=== PATIENT | female | born 1940 | race American Indian/Alaskan Native ===

== ENCOUNTER 2020-02-09 11:15 | Outpatient (CLI) | payer MEDICARE | END 2020-02-09 11:16 | disposition home or self-care (01) | LOC: SPVIMAG 11:15 | PROVIDERS: ATTEND Surgery | DX: N60.81 Other benign mammary dysplasias of right breast (principal); R92.2 Inconclusive mammogram; Z85.3 Personal history of malignant neoplasm of breast | CPT/HCPCS: A9575; C8908; 77049 ==

== ENCOUNTER 2020-04-24 06:24 | Day surgery (SDC) | payer MEDICARE ==
[~2020-04-24 06:24] MED LIST: VANCOMYCIN 1,000 MG in SODIUM CHLORIDE 0.9% 500 ML 500 ML IV ONE; VANCOMYCIN 1,250 MG in SODIUM CHLORIDE 0.9% 250ML 250 ML IV ONE
[2020-04-24] MEDS ORDERED: LIDOCAINE (1%) 10 MG/1 ML VIAL 20 ML MDV ONE ×2 (07:49→10:02)
[2020-04-24] MEDS ORDERED: LACTATED RINGERS 1,000 ML ONE (08:26)
[2020-04-24] MEDS ORDERED: VANCOMYCIN/NS 1 GM/250 ML 1 GM/250 ML BAG IV NR (08:34)
--- NOTE | 2020-04-24 08:52 | Anesthesia Day of Surgery ---
Anesthesia Day of Surgery - Day of Surgery Patient Examined: Yes Patient H&P Reviewed: Yes Patient is NPO: Yes Cardiac Clearance: Yes (Medical Clearance)
[2020-04-24] MEDS ORDERED: dexAMETHasone 20 MG/5 ML VIAL ONE (09:10)
[2020-04-24] MEDS ORDERED: ONDANSETRON 4 MG/2 ML INJ ONE (09:10)
[2020-04-24] MEDS ORDERED: LIDOCAINE MPF (2%) 20 MG/1 ML VIAL 5 ML ONE (09:10)
[2020-04-24] MEDS ORDERED: propofoL 200 MG/20 ML VIAL IV ONE (09:11)
[2020-04-24] MEDS ORDERED: HYDROmorphone 1 MG/1 ML INJ ONE (09:11)
[2020-04-24] MEDS ORDERED: BUPIVACAINE/PF (0.25%) 2.5 MG/ML 30 ML VIAL INFILTRATI ONE ×2 (10:02→10:50)
[2020-04-24] MEDS ORDERED: ePHEDrine SULFATE 50 MG/1 ML INJ ONE (10:34)
[2020-04-24] MEDS ORDERED: SODIUM CHLORIDE P/F VIAL 10 ML 10 ML ONE (10:35)
--- NOTE | 2020-04-24 10:39 | Mammography Report ---
MAMMOGRAPHIC GUIDED RIGHT BREAST NEEDLE LOCALIZATION, 04/24/2020 CLINICAL INFORMATION / INDICATION: POST BX CLIP. COMPARISON: Diagnostic right breast mammogram from 01/14/2020 PROCEDURE: Risks, benefits and indications to the procedure were discussed with the patient. The patient agreed to proceed with both verbal and written consent. A timeout procedure was performed with 2 patient maddy ntifiers. The breast was prepped with iodine in the usual sterile fashion. Approximately 3 cc of Lidocaine 1% w as used for local anesthesia. Under direct digital mammographic guidance, a localization wire was fadia kian in satisfactory position with distal tip traversing the targeted lesion. Post-biopsy mammogram co nfirms satisfactory positioning of the localization wire. The wire was secured to the skin with a rosales rile dressing. The patient tolerated procedure without difficulty. No complications were encountered. IMPRESSION: 1. Satisfactory mammographic guided wire localization of the right breast. Signer Name: Sedrick Peoples MD Signed: 04/24/2020 10:35 AM Workstation Name: [id number]
[2020-04-24] MEDS ORDERED: WATER FOR IRRIG STERILE 1,500 ML BOTTLE IR ONE (10:50)
[2020-04-24] MEDS ORDERED: LIDOCAINE (1%) 10 MG/1 ML VIAL 20 ML MDV INFILTRATI ONE (10:51)
--- NOTE | 2020-04-24 11:11 | Operative Report ---
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 She has a personal history of Stage 0 left breast cancer diagnosed in January 2019 and underwent a lumpectomy. She wished to proceed with the above procedure. Procedure in detail: The patient was taken to radiology for wire placement for localization known area of concern. Patient was then taken to the operating room. Gen. anesthesia was administered. Right breast and axilla were prepped and draped in the normal sterile operative fashion. The wire was identified around 9:00 position 5-7 cm FN. Timeout was performed. Ultrasound used as well to localize area of excision. Attention was then taken towards the right breast. A 9:00 periareolar breast incision was made with a 15 blade knife and dissection taken down to subcutaneous tissues. First began raising of the anterior flap with removal of the wire from the skin with dissection taken down posteriorly past the wire, followed by raising of the superior flap, inferior flap and medial flap with all flaps taken down posteriorly past the wire. The breast area of concern was appropriately removed posteriorly with the aid of the Bovie cautery. The wire was not encountered. Specimen was marked and then sent to pathology and radiology; radiograph specimen with wire and x1 clip present. Breast cavity was irrigated and hemostasis was obtained. Breast cavity was anesthesized wtih 1% lidocained mixed with quarter percent marcaine without epinephrine. The posterior deep breast tissues were approximated and closed using interrupted 3-0 Vicryl. The subcutaneous tissues were approximated and closed using interrupted 3-0 Vicryl followed by closing of the skin with a running 4-0 Monocryl and skin affix. The patient tolerated surgery very well and she was awaken from anesthesia without any complication and transported to PACU in good condition.
--- NOTE | 2020-04-24 11:14 | Short Stay Summary ---
Short Stay Documentation Date of service: 04/24/20 - History H&P: obtained from office - Allergies and Medications Current Medications: Allergies Penicillins Allergy (Verified 04/19/20 15:12) Unknown Home Medications Medication Instructions Recorded Confirmed Last Taken Type Ergocalciferol [Vitamin D2] 1 cap PO QWEEK 03/13/20 04/19/20 Unknown History traMADoL [Ultram 50 MG tab] 50 mg PO Q6HR PRN #12 tablet 04/24/20 Unknown Rx - Brief post op/procedure progress note Date of procedure: 04/24/20 Pre-op diagnosis: Right breast ADH UOQ Post-op diagnosis: same Procedure: Right breast mass excisional biopsy Anesthesia: GETA Findings: wire and clip present Surgeon: ISAURO BEYER Estimated blood loss: minimal Pathology: list Specimen disposition: to lab Condition: stable - Disposition Condition at discharge: Good Disposition: DC-01 TO HOME OR SELFCARE Short Stay Discharge Plan Activity: other (no heavy lifting) Diet: regular Wound: keep clean and dry (may shower in 48 hours; no baths; wear breast binder) Follow up with: ISAURO BEYER MD [Staff Physician] - 7 Days Prescriptions: traMADoL [Ultram 50 MG tab] 50 mg PO Q6HR PRN #12 tablet PRN Reason: Pain
[2020-04-24 12:04] VITALS: BP 133/78
[2020-04-24] MEDS ORDERED: LACTATED RINGERS 1,000 ML IV SCH (14:00)
--- NOTE | 2020-04-24 16:32 | Post Anesthesia Evaluation ---
- Post Anesthesia Evaluation Patient Participated: Yes Airway Patent: Yes Stable Respiratory Function: Yes Nausea/Vomiting: No Temp > 96.8F: Yes Pain Manageable: Yes Adequeate Hydration: Yes Anesthesia Complications: No Block Receding Appropriately: Not Applicable Patient on Ventilator: No
--- NOTE | 2020-04-26 09:20 | Mammography Report ---
Right breast surgical specimen. INDICATION: Surgical excision of right breast lesion.. COMPARISON: 02/09/2020, 01/14/2020 FINDINGS: Single radiographic specimen of the right breast is submitted. A coil shaped biopsy marker is located centrally within the specimen. IMPRESSION: Specimen radiograph of right breast surgical excision demonstrating coil shaped biopsy marker located centrally within the specimen. Signer Name: Lars Chacko MD Signed: 04/26/2020 9:15 AM Workstation Name: [id number]
== END 2020-04-24 12:56 | disposition home or self-care (01) ==
LOC: OR 06:24
PROVIDERS: ATTEND Surgery
DX: N64.89 Other specified disorders of breast (principal); N63.11 Unspecified lump in the right breast, upper outer quadrant; Z20.822 Contact with and (suspected) exposure to COVID-19; H40.9 Unspecified glaucoma; K21.9 Gastro-esophageal reflux disease without esophagitis; E66.9 Obesity, unspecified; M19.90 Unspecified osteoarthritis, unspecified site; Z90.12 Acquired absence of left breast and nipple; Z17.0 Estrogen receptor positive status [ER+]; Z88.0 Allergy status to penicillin; Z79.899 Other long term (current) drug therapy; Z85.3 Personal history of malignant neoplasm of breast; Z98.890 Other specified postprocedural states; Z68.31 Body mass index [BMI] 31.0-31.9, adult
CPT/HCPCS: 19125; 19281; 76098; 88307; 88341; 88342; A4648; J1100; J1170; J2405; J2704; J3370; J7120; U0003

== ENCOUNTER 2020-10-31 12:55 | Outpatient (CLI) | payer MEDICARE ==
--- NOTE | 2020-10-31 13:41 | Mammography Report ---
DIGITAL DIAGNOSTIC MAMMOGRAM CONVENTIONAL, 10/31/2020 CLINICAL INFORMATION / INDICATION: PERSONAL HISTORY OF MALIGNANT NEOPLASM OF BREAST TECHNIQUE: Digital bilateral mammographic imaging was performed. COMPARISON: Prior mammograms 01/14/2020, 03/23/2019, 02/16/2019, 12/17/2018, and 12/15/2017 FINDINGS: Breast Density: There are scattered areas of fibroglandular density. No dominant mass, suspicious calcifications or architectural distortion in either breast. There is new benign postlumpectomy change seen in both breasts. IMPRESSION: No mammographic evidence of malignancy. Follow up recommendation: Routine yearly BI-RADS Category 2: Benign. A "normal" or negative report should not discourage follow up or biopsy of a clinically significant f inding. A written summary of these findings will be mailed to the patient. The patient will be entered into a mammography reporting system which will generate a reminder letter for the patient's next appointmen t at the appropriate interval. According to the [employer], yearly mammograms are recommended starting at age 40 and continuing as long as a woman is in good health. Breast MRI is recommended for women with an alexander roximately 20-25% or greater lifetime risk of breast cancer, including women with a strong family his tory of breast or ovarian cancer and women who have been treated for Hodgkin's disease. Signer Name: Pooja Begum MD Signed: 10/31/2020 1:36 PM Workstation Name: [id number]
== END 2020-10-31 12:56 | disposition home or self-care (01) ==
LOC: SPVWC 12:55
PROVIDERS: ATTEND Surgery
DX: R92.8 Other abnormal and inconclusive findings on diagnostic imaging of breast (principal); Z85.3 Personal history of malignant neoplasm of breast
CPT/HCPCS: 77066